=== PATIENT | male | born 1970 | race Caucasian/White ===

== ENCOUNTER 2021-07-03 15:49 | Observation (INO) | payer MEDICAID, SELFPAY ==
[2021-07-03] VITALS (10 sets, daily range): BP systolic 117–137; BP diastolic 64–94; PULSE 86–133; RESP 13–21; TEMP 37–37.1; O2SAT 94–98; BMI 28.0
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
[2021-07-03 16:13] LABS: Basophils % 0.1 %; Eosinophils % 0.3 %; Hematocrit 50.9 % (42.0-52.0); Lymphocytes # 1.5 10^3/uL (0.8-4.8); Lymphocytes % 15.8 %; Mean Corpuscular HGB Conc 33.4 g/dL (30.0-36.0); Mean Corpuscular Hemoglobin 29.3 pg (28.0-34.0); Mean Corpuscular Volume 87.8 fl (80-94); Mean Platelet Volume 11.1 fL (7.4-10.4); Monocytes # 1.1 10^3/uL (0.2-0.9); Monocytes % 11.3 %; Neutrophils # 6.97 10^3/uL (1.8-7.7); Neutrophils % 71.7 %; Nucleated Red Blood Cells % 0 %; Platelet Count 383 10^3/cmm (130-400); Red Cell Distribution Width 12.6 % (12.1-15.1); White Blood Count 9.7 10^3/uL (4.0-10.0)
--- NOTE | 2021-07-03 16:31 | PC.NURSE ---
1610-patient transported to ct via stretcher.
--- NOTE | 2021-07-03 16:31 | PC.NURSE ---
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 patinet c/o increased pain . provider notified.
[2021-07-03] MEDS: fentaNYL 50 mcg/mL INJ 2mL IVP (16:45)
[2021-07-03 17:06] LABS: Alanine Aminotransferase 57 U/L (0-41); Albumin Level 4.2 g/dL (3.5-5.2); Alkaline Phosphatase 60 IU/L (40-130); Aspartate Amino Transferase 41 U/L (0-40); Blood Urea Nitrogen 11 mg/dL (6-20); Calcium 10.3 mg/dL (8.5-10.5); Carbon Dioxide 25 mmol/L (22-29); Chloride 102 mmol/L (98-107); Glomerular Filtration Rate 89.7 mL/min (90-130); Glucose 164 mg/dL (65-115); Osmolality Calculated 295 mOsm/kg (285-295); Sodium 141 mmol/L (136-145); Total Bilirubin 0.4 mg/dL (0.15-1.2); Total Protein 7.2 g/dL (6.6-8.7)
[2021-07-03 17:08] LABS: Alcohol Level < 10 mg/dL (0-10)
[2021-07-03 17:10] LABS: Lactate (Lactic Acid level) 1.9 mmol/L (0.5-2.2)
[2021-07-03] MEDS: HYDROmorphone 1 mg/mL INJ 1 mL IVP (18:23)
[2021-07-03] MEDS: orphenadrine 30 mg/mL Inj 2 mL 60 MG IVP (18:23)
[2021-07-03] MEDS: sodium chloride 0.9% 1,000 ML 999 ML IV ×2 (18:24→23:00)
[2021-07-03 18:56] LABS: Blood Urine Neg (Negative); Glucose Urine UA Norm (Normal); Ketones Urine 1+ (Negative); Protein Urine Trace (Negative); Urine Appearance Clear (CLEAR); Urine Color Dark Yellow (Yellow); pH Urine 7 (5-7)
[2021-07-03 18:57] LABS: Add Urine Microscopic? YES; Bilirubin Urine Neg (Negative); Leukocyte Esterase Urine Trace (Negative); Nitrate Urine Negative (Negative); Urobilinogen Urine Norm (Negative)
[2021-07-03 19:05] LABS: Mucus Urine 1+ /hpf; RBC Urine 0-4 /hpf (0-2); WBC Urine 0-4 /hpf (0-5)
[2021-07-03 19:06] LABS: Add Urine Culture? No
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
[2021-07-03 21:11] LABS: Amphetamines Screen Urine Negative (Negative); Barbiturates Screen Urine Negative (Negative); Benzodiazepines Screen Urine Negative (Negative); Cocaine Screen Urine Negative (Negative); Opiate Screen Urine Negative (Negative); PCP Screen Urine Negative (Negative); THC Screen Urine Negative (Negative)
[2021-07-03] MEDS: sodium chloride 0.9% 1,000 ML 100 ML IV (21:23)
[2021-07-03] MEDS: HYDROcodone-acetaminophen 5-325 mg Tablet 1 TAB PO (21:46)
[2021-07-03] MEDS: morphine 4 mg/mL SDV 1 mL 1 MG IVP (23:12)
[2021-07-04 00:26] VITALS: BP 129/71; PULSE 139; RESP 21; TEMP 36.9; O2SAT 95
--- NOTE | 2021-07-04 00:28 | PC.NURSE ---
Called MD re-garding heart rate elevated earlier, new orders for iv bolous fluilds. Also informed MD of heart rate patient stating been running in the 120's 130's most of the day reportedby patient. Oriented pt. to room call light for needs. Also medicated for pain. Pt. c/o back pain. Denies any tingling, numbness or loss of feeling.
[2021-07-04 04:00] VITALS: BP 116/72; PULSE 129; RESP 17; TEMP 37; O2SAT 91
[2021-07-04 05:13] LABS: Basophils % 0.1 %; Eosinophils # 0.1 10^3/uL (0.0-0.8); Hematocrit 44.5 % (42.0-52.0); Hemoglobin 14.6 g/dL (11.7-16.6); Lymphocytes % 14.6 %; Mean Corpuscular HGB Conc 32.8 g/dL (30.0-36.0); Mean Corpuscular Hemoglobin 29.4 pg (28.0-34.0); Mean Corpuscular Volume 89.7 fl (80-94); Monocytes # 1.4 10^3/uL (0.2-0.9); Monocytes % 10.1 %; Neutrophils # 9.89 10^3/uL (1.8-7.7); Neutrophils % 73.8 %; Nucleated Red Blood Cells % 0 %; Platelet Count 267 10^3/cmm (130-400); Red Blood Count 4.96 10^6/uL (4.1-5.3); Red Cell Distribution Width 12.7 % (12.1-15.1); White Blood Count 13.4 10^3/uL (4.0-10.0)
[2021-07-04 06:36] LABS: Alanine Aminotransferase 41 U/L (0-41); Albumin Level 3.3 g/dL (3.5-5.2); Alkaline Phosphatase 42 IU/L (40-130); Anion Gap 11.1 (5-19); Aspartate Amino Transferase 30 U/L (0-40); Blood Urea Nitrogen 9 mg/dL (6-20); Calcium 9.6 mg/dL (8.5-10.5); Carbon Dioxide 27 mmol/L (22-29); Chloride 105 mmol/L (98-107); Globulin 2.6 g/dL (1.3-4.6); Glomerular Filtration Rate 119.9 mL/min (90-130); Glucose 106 mg/dL (65-115); Osmolality Calculated 287 mOsm/kg (285-295); Potassium 4.1 mmol/L (3.5-5.1); Sodium 139 mmol/L (136-145); Total Bilirubin 0.5 mg/dL (0.15-1.2); Total Protein 5.9 g/dL (6.6-8.7)
[2021-07-04 08:00] VITALS: BP 124/75; BP 136/79; PULSE 125; PULSE 132; RESP 18; TEMP 36.6; TEMP 36.9; O2SAT 93
[2021-07-04] MEDS: venlafaxine 75 mg Tablet PO (09:48)
[2021-07-04] MEDS: sennosides-docusate Tablet 2 TAB PO (09:49)
[2021-07-04] MEDS: acetaminophen 325 mg Tablet 650 MG PO (09:49)
[2021-07-04] MEDS: metoprolol tartrate 50 mg Tablet 100 MG PO (09:49)
[2021-07-04] MEDS: meloxicam 7.5 mg tablet 15 MG PO (09:54)
--- NOTE | 2021-07-04 11:05 | PC.CHAP ---
Pastoral Care Encounter/Spiritual Assessment Type of Contact [] Declined rag washer visit [] Patient/Family/Request visit [] Outpatient visit [] Follow-up visit [] Physician referral [] Code/Alert [x] Routine visit [] Staff referral [] Actively dying [] Patient sleeping [] Family support [] [] Out of room [] Palliative care [] [x] Receiving care in room [] Pre-surgical visit [] Trauma [] Long length of stay [] ICU visit [] Other: Relational/Emotional Strength [] Patient feels connected with others/family/visitors/staff [] Distress [] Loneliness/isolation [] Abandonment Spirituality of Patient [] Person of Liza [] Attends Orthodoxy of their Liza [] Believes in Prayer [] Reads Bible or Anglican materials [] There are Spiritual issues to be addressed Scientific Linguist Interventions [] Prayer [] Active listening [] Non-anxious presence [] Spiritual/emotional support [] Crisis/trauma care [] Spiritual counseling [] Bereavement support [] Provided bereavement packet [] Provided Bible/devotional materials [] Provided toy/stuffed animal, coloring book to patient or family member [] Provided Communion [] Anointing/Springs [] Salvation [] Completed spiritual assessment [] Other: Impact on Illness or Injury [] Angry [] Fearful [x] Anxious [] Often cries [] Exhaustion [] Unable to work [] Unable to attend christianity [] Unable to walk/stand [] Unable to read [] Unable to drive [] Unable to eat/drink [] Unable to sleep [] Unable to be with family [] Patient intubated [] Other: Summary broke his back waiting on and doctors to see what needs to be done +1 Time spent with patient 10 mins
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
[2021-07-04 12:00] VITALS: BP 124/75; PULSE 125; RESP 18; TEMP 36.6; O2SAT 94
[2021-07-04 13:15] VITALS: RESP 18; O2SAT 94
[2021-07-04] MEDS: oxyCODONE 5 mg IR Tab/Cap PO (13:15)
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
--- NOTE | 2021-07-04 15:07 | PC.NURSE ---
Discussed discharge with patient along with follow up visit and new medications. Verbalized understanding.
[2021-07-04 15:27] VITALS: RESP 18; O2SAT 94
[2021-07-05 16:08] LABS: Lyme AB Screen <0.90 index
[2021-07-09 14:57] LABS: Creatine Kinase BB Total 8 % (None Detected); Creatine Kinase Interpretation BB BAND PRESENT.; Creatine Kinase MB Total 0 % (<5); Creatine Kinase MM Total 92 % (95-100)
[2021-07-10 21:27] LABS: E. Chaffeensis AB IGG <1:64; E. Chaffeensis AB IGM <1:20
[2021-07-11 21:38] LABS: RMSF IGG NOT DETECTED; RMSF IGM NOT DETECTED
== END 2021-07-04 15:30 | disposition home or self-care (01) ==
LOC: ER 17:25 → MEDSURG 20:18
PROVIDERS: Admitting Provider Internal Medicine; Emergency Provider Emergency Medicine; Visit Provider Internal Medicine
DX: S22.000A Wedge compression fracture of unspecified thoracic vertebra, initial encounter for closed fracture (principal); V89.2XXA Person injured in unspecified motor-vehicle accident, traffic, initial encounter; K57.30 Diverticulosis of large intestine without perforation or abscess without bleeding; F32.9 Major depressive disorder, single episode, unspecified; I10 Essential (primary) hypertension
CPT/HCPCS: 36415; 70450; 71260; 72125; 72128; 72131; 74177; 80053; 80306; 80307; 81001; 82252; 83605; 85025; 86618; 86666; 86757; 86850; 86900; 87798; 96361; 96374; 96375; 99285; G0378; J1170; J2270; J2360; J3010; J7030; Q9967